=== PATIENT | male | born 1945 | race Two or more races ===

== ENCOUNTER 2019-03-12 19:00 | Inpatient (IN) | payer MEDICARE, MEDICAID ==
[~2019-03-12] VITALS: Ht 180.3 cm; Wt 99.3 kg
[2019-03-12 19:00] VITALS: BP 165/90
[~2019-03-12 19:00] MED LIST: Omnipaue 350mg/ml 100ml vial INJ PRN
--- NOTE | 2019-03-12 19:00 | NUR ---
ED Nurse Note: Patient brought in by RA due to S/P fallx 20 mins ago prior arrival to ER. As per patient he felt weak. Pt is noted with bump on forehead and abrassions on his nose and forehead. No KO. Pt alert and oriented, verbally responsive. Afebrile. VSS.
--- NOTE | 2019-03-12 19:04 | Emergency Room Report ---
History of Present Illness General Chief Complaint: Multiple Trauma/Fall Source: Patient Present Illness HPI 73-year-old male presents with fall, patient states that he felt a sudden weakness, like something hit his head but then he was awake the entire time and he just collapsed + LOC, he is not sure if he had chest pain or shortness of breath, no nausea no vomiting currently denies headache, he endorses that his forehead currently hurts from the fall, no aggravating relieving factors severity is mild, mild head pain patient presents for evaluation No history of brain bleeds in the family Allergies: Coded Allergies: No Known Allergies (Unverified , 03/12/19) Patient History Past Medical History: see triage record Reviewed Nursing Documentation: PMH: Agreed; PSxH: Agreed Nursing Documentation-PMH Past Medical History: No History, Except For Hx Hypertension: Yes Review of Systems All Other Systems: negative except mentioned in HPI Physical Exam Vital Signs Date Time Temp Pulse Resp B/P (MAP) Pulse Ox O2 Delivery O2 Flow Rate FiO2 03/12/19 18:53 98.2 88 16 165/90 (115) 92 Room Air Sp02 EP Interpretation: reviewed, normal General Appearance: well appearing, no apparent distress, alert Head: normocephalic, other - Contusion of the forehead, hematoma of forehead Eyes: bilateral eye PERRL, bilateral eye EOMI ENT: uvula midline, moist mucus membranes Neck: supple, thyroid normal, supple/symm/no masses Respiratory: lungs clear, no respiratory distress, no retraction, no accessory muscle use Cardiovascular #1: normal peripheral pulses, regular rate, rhythm, no edema, no gallop, no murmur Gastrointestinal: non tender, soft, no guarding, no rebound Musculoskeletal: normal inspection Neurologic: alert, oriented x3 Psychiatric: mood/affect normal Skin: no rash, warm/dry Medical Decision Making Diagnostic Impression: Primary Impression: Fall Qualified Codes: W19.XXXA - Unspecified fall, initial encounter Additional Impressions: Syncope and collapse Closed head injury Qualified Codes: S09.90XA - Unspecified injury of head, initial encounter ER Course Patient with syncope and collapse, ddx includes, ACS, PE, Stroke. Patient with neg troponin, neg cxr. CTA negative for acute clot of aneurysm, no e/o of ICH. Patient will be admitted to Dr. Ferguson under Telemetry. Laboratory Tests Test 03/12/19 19:40 White Blood Count 9.2 K/UL (4.8-10.8) Red Blood Count 5.46 M/UL (4.70-6.10) Hemoglobin 15.1 G/DL (14.2-18.0) Hematocrit 47.1 % (42.0-52.0) Mean Corpuscular Volume 86 FL (80-99) Mean Corpuscular Hemoglobin 27.6 PG (27.0-31.0) Mean Corpuscular Hemoglobin Concent 32.0 G/DL (32.0-36.0) Red Cell Distribution Width 14.4 % (11.6-14.8) Platelet Count 166 K/UL (150-450) Mean Platelet Volume 6.8 FL (6.5-10.1) Neutrophils (%) (Auto) % (45.0-75.0) Lymphocytes (%) (Auto) % (20.0-45.0) Monocytes (%) (Auto) % (1.0-10.0) Eosinophils (%) (Auto) % (0.0-3.0) Basophils (%) (Auto) % (0.0-2.0) Differential Total Cells Counted 100 Neutrophils % (Manual) 16 % (45-75) L Lymphocytes % (Manual) 80 % (20-45) H Monocytes % (Manual) 2 % (1-10) Eosinophils % (Manual) 2 % (0-3) Basophils % (Manual) 0 % (0-2) Band Neutrophils 0 % (0-8) Platelet Estimate Adequate Platelet Morphology Normal Red Blood Cell Morphology Normal Prothrombin Time 10.7 SEC (9.30-11.50) Prothrombin Time INR 1.0 (0.9-1.1) PTT 23 SEC (23-33) Urine Color Yellow Urine Appearance Clear Urine pH 6 (4.5-8.0) Urine Specific [place] 1.020 (1.005-1.035) Urine Protein 2+ (NEGATIVE) H Urine Glucose (UA) Negative (NEGATIVE) Urine Ketones Negative (NEGATIVE) Urine Blood 2+ (NEGATIVE) H Urine Nitrite Negative (NEGATIVE) Urine Bilirubin Negative (NEGATIVE) Urine Urobilinogen Normal MG/DL (0.0-1.0) Urine Leukocyte Esterase Negative (NEGATIVE) Urine RBC 10-15 /HPF (0 - 0) H Urine WBC 0-2 /HPF (0 - 0) Urine Squamous Epithelial Cells None /LPF (NONE/OCC) Urine Bacteria Few /HPF (NONE) Sodium Level 139 MMOL/L (136-145) Potassium Level 4.3 MMOL/L (3.5-5.1) Chloride Level 105 MMOL/L (98-107) Carbon Dioxide Level 29 MMOL/L (21-32) Anion Gap 5 mmol/L (5-15) Blood Urea Nitrogen 15 mg/dL (7-18) Creatinine 1.0 MG/DL (0.55-1.30) Estimate Glomerular Filtration Rate mL/min (>60) Glucose Level 98 MG/DL (74-106) Calcium Level 8.9 MG/DL (8.5-10.1) Total Bilirubin 0.6 MG/DL (0.2-1.0) Aspartate Amino Transferase (AST) 24 U/L (15-37) Alanine Aminotransferase (ALT) 25 U/L (12-78) Alkaline Phosphatase 85 U/L (46-116) Troponin I 0.000 ng/mL (0.000-0.056) Pro-B-Type Natriuretic Peptide 47 pg/mL (0-125) Total Protein 7.4 G/DL (6.4-8.2) Albumin 4.2 G/DL (3.4-5.0) Globulin 3.2 g/dL Albumin/Globulin Ratio 1.3 (1.0-2.7) Lipase 189 U/L (73-393) EKG Diagnostic Results EKG Time: 19:03 EP Interpretation: NSR, rate 77, QTc 430, no acute ST elevations, normal axis Rhythm Strip Diag. Results Rhythm Strip Time: 19:30 EP Interpretation: yes Rate: 80 Rhythm: NSR, no PVC's, no ectopy Chest X-Ray Diagnostic Results Chest X-Ray Diagnostic Results : Chest X-Ray Ordered: Yes # of Views/Limited/Complete: 1 View Indication: Other - syncope EP Interpretation: Yes Interpretation: no consolidation, no effusion, no pneumothorax, no acute cardiopulmonary disease Impression: No acute disease Electronically Signed by: Micheal Merlos MD CT/MRI/US Diagnostic Results CT/MRI/US Diagnostic Results : Impression Preliminary Findings Only See Final Report For Complete Findings CTA HEAD: No large vessel occlusion. No aneurysm. Atherosclerotic calcification of the bilateral cavernous and supraclinoid internal carotid arteries with greater than 50% stenosis on the left. CTA NECK: No evidence of hemodynamically significant carotid artery stenosis. Atherosclerotic calcification of the bilateral proximal internal carotid arteries with up to approximately 40% stenosis on the left and 30% on the right. CT head shows focal cortical volume loss of the left frontal cerebral cortex Chronic small vessel ischemic disease. Multilevel moderate degenerative changes throughout the cervical spine. Radiologist: Quang David MD Study ready at 22:01 and initial results transmitted at 22:17 *This report constitutes a preliminary interpretation only. Non-acute findings felt to be unrelated to the clinical presentation may not be discussed in this report. The study will be interpreted and a final report will be generated by the local Radiologist the following shift. To reach the hospital radiology department call [phone]. Last Vital Signs Date Time Temp Pulse Resp B/P (MAP) Pulse Ox O2 Delivery O2 Flow Rate FiO2 03/12/19 18:53 98.2 88 16 165/90 115 92 Room Air Disposition: ADMITTED INPATIENT Condition: Stable Micheal Merlos MD Mar 12, 2019 19:04
--- NOTE | 2019-03-12 19:08 | NUR ---
ED Nurse Note: Xray at bedside.
--- NOTE | 2019-03-12 19:15 | NUR ---
ED Nurse Note: Pt taken to CT.
[2019-03-12] MEDS ORDERED: Tetanus/Diptheria/Pertussis IM ONE (19:30)
--- NOTE | 2019-03-12 19:42 | NUR ---
ED Nurse Note: Pt came back from CT.
[2019-03-12 19:49] LABS: HEMATOCRIT 47.1 % (42.0-52.0); HEMOGLOBIN 15.1 G/DL (14.2-18.0); MEAN CORPUSCULAR VOLUME 86 FL (80-99); PLATELET COUNT 166 K/UL (150-450); RED BLOOD COUNT 5.46 M/UL (4.70-6.10); RED CELL DISTRIBUTION WIDTH 14.4 % (11.6-14.8); WHITE BLOOD COUNT 9.2 K/UL (4.8-10.8)
[2019-03-12 19:50] LABS: APPEARANCE,URINE CLEAR; BILIRUBIN, URINE NEGATIVE (NEGATIVE); GLUCOSE, URINE (UA) NEGATIVE (NEGATIVE); KETONES,URINE NEGATIVE (NEGATIVE); LEUKOCYTE ESTERASE ,URINE NEGATIVE (NEGATIVE); NITRITE,URINE NEGATIVE (NEGATIVE); PH,URINE 6 (4.5-8.0); PROTEIN,URINE 2+ (NEGATIVE); UROBILINOGEN,URINE NORMAL MG/DL (0.0-1.0)
[2019-03-12 19:53] LABS: COLOR,URINE YELLOW
[2019-03-12 20:08] LABS: ANION GAP 5 mmol/L (5-15); BLOOD UREA NITROGEN 15 mg/dL (7-18); CALCIUM 8.9 MG/DL (8.5-10.1); CARBON DIOXIDE 29 MMOL/L (21-32); CHLORIDE 105 MMOL/L (98-107); POTASSIUM 4.3 MMOL/L (3.5-5.1); SODIUM 139 MMOL/L (136-145)
[2019-03-12 20:17] LABS: ALANINE AMINOTRANSFERASE 25 U/L (12-78); ALBUMIN 4.2 G/DL (3.4-5.0); ALBUMIN/GLOBULIN RATIO 1.3 (1.0-2.7); ALKALINE PHOSPHATASE 85 U/L (46-116); ASPARTATE AMINO TRANSFERASE 24 U/L (15-37); BILIRUBIN,TOTAL 0.6 MG/DL (0.2-1.0)
[2019-03-12 22:10] VITALS: BP 150/88
--- NOTE | 2019-03-12 22:17 | Diagnostic Imaging Report ---
Indication: Focal weakness. Acute cva Technique: Continuous helical transaxial imaging of the head was obtained during rapid intravenous contrast administration. Arterial phase of enhancement obtained. Coronal 2-D reformats were also obtained and maximum intensity projection images in multiple planes. Study obtained in a Siemens sensation [address] Automatic Exposure Control was utilized. Total Dose length Product (DLP): 3114.[address] Dose Index Volume (CTDIvol): 104 mGy Comparison: None Findings: The study is technically limited. Evaluation is primarily on the basis of the source images only. The 2-D reconstructions, MIPS are technically uninterpretable. There is no evidence of a major occlusion of the proximal portions of the intracranial arteries including the anterior middle and posterior cerebral arteries. The basilar and intracranial portions of both vertebral arteries appear unremarkable. The intracranial portions of the internal carotid arteries show no occlusion or high-grade stenosis. Mild calcification of the cavernous and supraclinoid ICA noted. IMPRESSION: Diagnostically limited evaluation due to the poor quality of the reconstructions as described above. No high-grade stenosis or occlusion identified.
[2019-03-12] MEDS ORDERED: METOPROLOL SUCC50 MG ORAL (23:17)
[2019-03-12] MEDS ORDERED: ALLOPURINOL300 M1 ORAL (23:17)
[2019-03-12] MEDS ORDERED: DOXAZOSIN MESYLA1 MG ORAL (23:17)
[2019-03-12] MEDS ORDERED: AMLODIPINE BESYL5 MG ORAL (23:17)
--- NOTE | 2019-03-12 23:44 | NUR ---
ED Nurse Note: Report given to Leslie BATES from Tele.
--- NOTE | 2019-03-12 23:49 | NUR ---
NURSE NOTES: Received report from MONTEZ Frazier RN.
[2019-03-13] VITALS (7 sets, daily range): BP systolic 126–144; BP diastolic 68–84
--- NOTE | 2019-03-13 00:05 | NUR ---
TRANSFER TO FLOOR: Patient transferred to Tele. Report given to Lelsie BATES. Pt alert and oriented, verbally responsive. Able to walk with steady gait. IV line on right AC 20g patent and intact. No SOB. Breathing even and unlabored. Belongings given to the patient.
--- NOTE | 2019-03-13 00:15 | NUR ---
NURSE NOTES: Patient transferred to tele floor via gurney with 2 staff member assist, no incidents. Patient is AOx4, no signs of shortness of breath, distress, or pain noted. Patient is ambulatory with steady gait and able to make needs known. Belongings list went through with ER nurse at bedside, patient keeping belongings at bedside. Patient has $24 in [place] ($5 x4, $1 x4), refused to keep in safe. Patient placed on tele box, tolerated well. Patient's IV site checked, intact and patent, no signs of redness, infiltration, or bleeding noted. Medications reconciled with patient. Bed in lowest position, brakes on, side rails up x2 and call light within reach. Will continue with plan of care.
--- NOTE | 2019-03-13 00:35 | NUR ---
NURSE NOTES: Called and received admission orders from Dr. Ferguson. Noted and carried out, will continue to monitor patient.
[2019-03-13] MEDS: Doxazosin 1mg Tab ORAL SCH ×2 (01:16→21:17)
--- NOTE | 2019-03-13 06:46 | NUR ---
NURSE NOTES: Paged Dr. Ferguson regarding PRN pain meds for patient, received orders. Noted and carried out.
--- NOTE | 2019-03-13 07:10 | NUR ---
HAND-OFF: Report given to PAULO Loving. Plan of care endorsed. Patient in stable condition.
--- NOTE | 2019-03-13 07:29 | NUR ---
NURSE NOTES: Received report from Jess/RN, Patient is on room air no distress/SOB noted at this time. AAO x 4, Able to make needs known. Denies pain at this time. Abrasion noted on face. IV site on Right AC, patent, no bleeding or infiltration noted. Bed in low position and locked, Bed alarm engaged, side rails up x2. Call light within reach, Encouraged to use call light when needed. Will continue plan of care.
[2019-03-13] MEDS ORDERED: LUBRICANT EYE1 EAC1 OP (08:13)
[2019-03-13] MEDS: Metoprolol Succinate XL 50mg tab ORAL SCH (08:21)
--- NOTE | 2019-03-13 10:14 | Diagnostic Imaging Report ---
Indication: Orbital and maxillofacial trauma and pain Technique: Continuous helical transaxial imaging of the orbits/maxillofacial structures obtained without intravenous contrast administration. Coronal 2-D reformats were also obtained. Study obtained in a Siemens sensation [address] Automatic Exposure Control was utilized. Total Dose length Product (DLP): 582.[address] Dose Index Volume (CTDIvol): 25.1 mGy Comparison: None Findings: There is no evidence of an acute fracture. Paranasal sinuses and mastoids are clear. There is soft tissue swelling over the frontal region. Moderate degenerative changes of cervical spine incidentally noted with hypertrophied facets and uncovertebral joints foraminal stenosis. IMPRESSION: No acute fracture identified. Moderate cervical spondylosis. Frontal scalp contusion The CT scanner at [facility] is accredited by the [employer] and the scans are performed using dose optimization techniques as appropriate to a performed exam including Automatic Exposure control.
--- NOTE | 2019-03-13 10:15 | NUR ---
*-* NO INSURANCE INFORMATION IN THE BAR UNABLE TO SEND CLINICALS OR REVIEWS *-*
--- NOTE | 2019-03-13 10:27 | Diagnostic Imaging Report ---
Indication: Syncope. Technique: Contiguous 5 mm thick transaxial imaging of the head obtained in a Siemens Sensation [address] scanner. Soft tissue and bone windows generated. Automatic Exposure Control was utilized. Total Dose length Product (DLP): 1426.[address] Dose Index Volume (CTDIvol): 62.7 mGy Comparison: none Findings: There is mild prominence of the ventricles, basal cisterns, and cerebral sulci consistent with atrophy. Mild, nonspecific, white matter hypoattenuation is noted throughout the brain consistent with chronic small vessel disease. There is no midline shift, edema, acute hemorrhage, mass effect, or abnormal extra-axial fluid collections. There is a 1.4 x 2.1 cm arachnoid cyst over the left frontal convexity associated with some scalloping of the inner table. Bones are unremarkable. Impression: No acute intracranial bleed, mass effect or edema. Mild atrophy of the brain. Nonspecific white matter hypoattenuation probably due to chronic small vessel disease. Left frontal arachnoid cyst The CT scanner at [facility] is accredited by the [employer] and the scans are performed using dose optimization techniques as appropriate to a performed exam including Automatic Exposure control.
--- NOTE | 2019-03-13 12:49 | Diagnostic Imaging Report ---
Indication: CVA and focal weakness. Technique: Continuous helical transaxial imaging of the neck was obtained from the aortic arch to the skull base during rapid intravenous contrast administration. Arterial phase of enhancement obtained. Coronal 2-D reformats were also obtained and maximum intensity projection images in multiple planes. Study obtained in a Siemens sensation [address] Automatic Exposure Control was utilized. Total Dose length Product (DLP): 3114.[address] Dose Index Volume (CTDIvol): 104 mGy Comparison: None Findings: There is no high-grade stenosis or occlusion of the extracranial portions of both internal carotid arteries. There is some calcific plaque at the origins of the ICA and carotid bifurcations. This does not appear significant hemodynamically. The common carotid arteries are widely patent from the arch. Both vertebral arteries are demonstrated and show no significant stenosis. There is moderate degenerative disease of the cervical spine. There is narrowing of intervertebral discs and accompanying endplate osteophyte formation. Hypertrophied facet joints also demonstrated. Multilevel neural foraminal stenosis demonstrated. IMPRESSION: No high-grade stenosis or occlusion of the extracranial carotid or vertebral arteries. Mild atherosclerotic vascular disease. Cervical spondylosis. The CT scanner at [facility] is accredited by the [employer] and the scans are performed using dose optimization techniques as appropriate to a performed exam including Automatic Exposure control.
--- NOTE | 2019-03-13 12:55 | Diagnostic Imaging Report ---
Indication: Dyspnea Comparison: None A single view chest radiograph was obtained. Findings: Left hemidiaphragm is markedly elevated. There is suggestion of cardiomegaly. Lungs are clear. Bones are unremarkable. IMPRESSION: Elevated left hemidiaphragm
--- NOTE | 2019-03-13 15:25 | NUR ---
[employer] 73 YO MALE BIBA FROM HOME TO ER CC S/P FALL SYNCOPE SI: SYNCOPE T. 98.2 HR 88 RR 16 B/P 168/91 HEAD/NECK CT= MILD ATHEROSCLEROTIC VASCULAR DISEASE HEAD CT= NO ACUTE PROCESS CXR= ELEVATED LEFT HEMIDIAPHRAGM CT FACILA BONES= NO FRACTURES IS: IV BOLUS NS X 1 LITER TDAP IM ADMITTED TO TELE @0005 TELE STATUS DCP RETURN HOME
[2019-03-13] MEDS ORDERED: Gadavist 7.5mMol/7.5ml vial IV PRN (17:00)
--- NOTE | 2019-03-13 19:33 | NUR ---
HAND-OFF: Report given to Bj/RN, Patient is sitting on chair, in stable condition. Endorsed plan of care.
--- NOTE | 2019-03-13 19:35 | NUR ---
Received report from nurse Fabienne RN. Awake and ambulating in the room. Denies c/o discomfort at this time. Abrasion noted to his face but dry. Continue with the p[an of care.
--- NOTE | 2019-03-13 22:30 | History and Physical Report ---
DATE OF ADMISSION: 03/12/2019 CHIEF COMPLAINT: Fall with loss of consciousness. HISTORY OF PRESENT ILLNESS: The patient is a 73-year-old man, who was walking on a sidewalk when he felt suddenly weak in his right leg and arms. He collapsed and likely lost consciousness as his memory of the event is very poor. He had no seizure activity reported to him and remembers people around him when he was next aware. He was too weak to get up and paramedics brought him to the emergency department. He was noted to have a contusion of the forehead, but no signs of stroke or cerebral hemorrhage were identified. CT scan does show a cyst as noted below in addition to atherosclerotic disease. The patient reports that he has numbness of his hands for several months, but no numbness in the legs. He does not have any focal weakness any longer at this time. PAST MEDICAL HISTORY: Hypertension and tonsillectomy as a child. He is not aware of any cholesterol disorder. He has a history of an elevated white count, but does not have a diagnosis of cancer or leukemia. MEDICATIONS: Allopurinol, amlodipine, doxazosin, and metoprolol eyedrops. REVIEW OF SYSTEMS: Unremarkable. PHYSICAL EXAMINATION: GENERAL: The patient is overweight. VITAL SIGNS: Normal with blood pressure slightly elevated. HEENT: His head shows ecchymosis over the forehead and glabella. The eyes show no scleral icterus. NECK: No jugular venous distention. The carotids are 2+. CHEST: Clear. CARDIAC: Rhythm is regular. ABDOMEN: Soft and nontender. Liver and spleen are not enlarged. EXTREMITIES: No clubbing, cyanosis, or edema. He is able move all extremities with full power. Cranial nerves are intact. LABORATORY DATA: Laboratory studies show a normal white count with a right shift of 80% lymphocytes. Chemistry is unremarkable. Coagulation is normal. Urinalysis shows few red cells. Imaging studies show atherosclerotic sclerosis of the aorta. The left hemidiaphragm is elevated. There is plaque in the intracranial vessels. There is a 2.1 centimeter arachnoid cyst over the left frontal convexity with some scalloping of the inner table. There is no intracerebral hemorrhage or mass and no edema. IMPRESSION: 1. Loss of consciousness with head trauma. 2. Arachnoid cyst, left frontal lobe. 3. Hypertension. 4. Lymphocytosis. 5. Atherosclerotic disease of aorta. 6. . PLAN: The patient will have an MRI of the brain with contrast and Neurology consultation will be requested. We will start anti-lipid medication if his lipid panel so indicates. Mika Ferguson M.D. DR: RO JOB#: [id number] CC: Mika Ferguson M.D.; Fax#: [phone]
[2019-03-14] VITALS: BP 150/89
--- NOTE | 2019-03-14 00:15 | Consultation ---
DATE OF CONSULTATION: 03/13/2019 NEUROLOGICAL CONSULTATION CONSULTING PHYSICIAN: Jero Escamilla M.D. CHIEF COMPLAINT: This is the first [facility] admission for this 73-year-old right-handed man with a previous history of hypertension for 10 years and gout for 3 years on metoprolol, allopurinol, amlodipine 10 mg, and doxazosin 2 mg. The patient was admitted with a chief complaint of a fall on he states it is on Sunday, but it was apparently yesterday. The patient felt well. He was walking and took 1 step with his right foot and his right leg collapsed. He fell striking his face and nose. He was not knocked out, but was . He had no dizzy spells. No hearing loss. No blackout spells. No neck or back pain. He denied any chest pain, palpitations, but he might have had some shortness of breath. The patient initially could not get up for about 3 minutes or so, but got into the ambulance and was brought to this hospital. He denies any nausea or vomiting. He denies any alcohol yesterday. He denies chest pain, palpitation, shortness of breath. He has no memory loss. Ten days before the accident, he had tinglings and paresthesias in his hands, which comes and goes. He denies any loss of bowel or bladder function, tremors or shakes, gait disorder, diplopia, however, he did have some blurred vision after the head injury. There is no history of thyroid disease. He does not smoke. He denies any headaches before the accident, but does have a headache after the accident. The patient previously had an injury to his right heel "could not walk for a few days" because of pain. This apparently cleared out. He had no problems with his gait afterwards. The patient was brought to this hospital and seen in the emergency room. His urinalysis is essentially negative except for some rbc's and some elevated urine protein and few bacteria. His specific gravity is was 1.020 with a pH of 6. His chemistries were all normal with a negative troponin. His PT and PTT were normal. His CBC revealed normal hemoglobin, normal platelets, and a normal white count; however, his lymphocyte count is 80% and neutrophil count was 15%. The patient had a chest x-ray, which revealed an elevated left hemidiaphragm. Otherwise was unremarkable. However, there was a suggestion of cardiomegaly. He did have CT scan of his head, which revealed over the left frontal convexity. There is some scalloping of the inner table of the skull. Otherwise was negative except for some nonspecific white matter hypoattenuation consistent with small vessel disease. The patient had a CT angiogram of the head, which was a poor study. However, there is no high-grade stenosis or occlusion identified. A CT angiogram of the neck yesterday revealed some calcific plaques at the origins of the ICA and carotid bifurcation. The vertebral arteries are normal. The diagnosis is mild arteriosclerotic vascular disease. No high-grade stenosis or occlusion of the extracranial carotid or vertebral arteries. Facial bone CT was done, which revealed no fractures, moderate cervical spondylosis, and a frontal scalp contusion. The patient denied any history of thyroid disease, cancer, sickle cell disease or trait, anemia, liver disease. He does have gout. See above. His mother probably had Alzheimer disease. PAST MEDICAL HISTORY/PAST MEDICAL ILLNESSES: 1. Hypertension. See above. 2. Gout. See above. ALLERGIES: None. HISTORY: None. SOCIAL HISTORY: He is single. Has no children. Works in human relations. MEDICATIONS: See above. FAMILY HISTORY: His father probably of lung cancer. His mother is probably from old age. He had a sister who of lung cancer and a brother who probably of emphysema. He also had diabetes. REVIEW OF SYSTEMS: His appetite is good. PHYSICAL EXAMINATION: GENERAL: He is a well-developed obese man, in no acute distress. VITAL SIGNS: His weight is stable at 235 pounds. He is 5 feet 10 inches tall. Blood pressure is 136/75, temperature is 97.3 degrees, pulse rate is 61 and regular. HEENT: Examination of the head, ears, eyes, nose, mouth, and throat reveals extensive abrasions over the frontal area and over his nose. NECK: There is no tenderness to palpation or limitation of motion. Carotids are +2. No bruits noted. LUNGS: Clear to auscultation. CARDIOVASCULAR: PMI could not be felt. JVP were not distended. The patient had a normal S1. S2 appeared to be physiologically split. I could not hear any murmurs or rubs or clicks. ABDOMEN: Obese. Bowel sounds intact. No tenderness, masses, or organomegaly. EXTREMITIES: Intact. Tinel signs were negative at the wrists. I could not feel the peripheral pulses in the lower extremities. NEUROLOGIC EXAMINATION: MENTAL STATUS: He was alert and awake. Judgment, his judgment was normal. Affect, the affect is appropriate. He was in a rather good mood. Memory, past memory is intact to his mother's maiden name. Immediate recall was 3/3 objects. Recent recall was 3/3 words at 5 minutes. Intellect, similarities were abstract i.e., watch and ruler "forms of measurement." Orientation, time - he knew it was 03/13/2019, he knew it is . Place, he knew he is at [facility], did not know the floor number. He was oriented to person. Language function, spoken speech was fluent without paraphasias. Comprehension and repetition were intact. There was no right left confusion or finger agnosia. CRANIAL NERVE EXAMINATION: CRANIAL NERVE II: Visual mcallister are intact to confrontation. Fundi were not visualized. CRANIAL NERVES III, IV, AND : Extraocular motility was full. Pupils are 5 mm, round, and light reactive. CRANIAL NERVE V: Facial and corneal sensation were intact to fine touch. CRANIAL NERVE VII: Facial strength was 5/5. CRANIAL NERVE VIII: Auditory acuity was basically intact A.U. CRANIAL NERVES IX AND X: Gag was intact. CRANIAL NERVE XI: Sternocleidomastoid strength was 5/5. CRANIAL NERVE XII: Tongue protrudes in the midline without fasciculations or atrophy. MUSCLE EXAMINATION: Muscle bulk and tone are normal. Strength is 5/5 proximally and distally without pronator drift. Reflexes are trace in the upper extremities, +2 at the knees, +1 at the ankles with downgoing toes on testing for Babinski response. COORDINATION: Kzlzwd-ja-rvyf, rapid alternating movements, qmwa-qf-rsia testing are normal. GAIT AND STATION: He had a normal based gait. Heel-toe tandem walk normal. Romberg is negative. SENSORY EXAMINATION: Sensation is intact to pinprick, proprioception, vibration, and fine touch. IMPRESSION: The patient basically now has a normal examination except for the abrasions on his face. The patient had sudden weakness in the right leg. The localization is unclear. He does have a cyst in the left frontal lobe. It is conceivable that it could have cause a focal decrease in blood flow with weakness in the right leg. The right leg weakness would be in the territory of the anterior cerebral artery on the left side. Usually, these patients have shoulder weakness, which he did not have and other signs. Another possible localization would be in the cervical or thoracic spinal cord, possibly ischemia to those areas. We should get the MRI of the brain. If this does not show much, then MRIs of the cervical and thoracic spine should be done. He does not really need any physical therapy. He is not on aspirin at this time, but I am not sure I would put him on aspirin or Plavix because we are not sure of what are the causes. His carotid arterial sclerosis would have had send an embolus to the left anterior cerebral artery, which would be unusual. Usually, it goes to the middle cerebral artery. PLAN: 1. Obtain MRIs of the cervical and thoracic spinal cord if MRIs of the brain showed no changes. 2. I will speak to you about this case. Thank you for this interesting case, Dr. Ferguson. Jero Escamilla MD DR: NINA JOB#: [id number] CC:
[2019-03-14 04:00] VITALS: BP 149/88
--- NOTE | 2019-03-14 07:29 | NUR ---
HAND-OFF: Report given to PAULO LONDONO. Sitting on the chair and comfortable..
[2019-03-14 08:00] VITALS: BP 153/76
[2019-03-14 08:02] LABS: CHOLESTEROL 224 MG/DL (< 200); HDL CHOLESTEROL 63 MG/DL (40-60); TRIGLYCERIDES 96 MG/DL (30-150)
[2019-03-14] MEDS: Metoprolol Succinate XL 50mg tab ORAL SCH (08:50)
--- NOTE | 2019-03-14 08:57 | NUR ---
NURSE NOTES: Pt taken down to MRI
--- NOTE | 2019-03-14 09:40 | NUR ---
03/14 Before MR exam started, pt felt too clautrophobic to continue, willl try again later with sedation. ramon
[2019-03-14] MEDS ORDERED: LORazepam Inj 2mg/ml 1ml IV SCH ×2 (10:45→18:30)
--- NOTE | 2019-03-14 13:33 | NUR ---
NURSE NOTES: Pt taken down to MRI take 2. Pt given Ativan per eMAR to help with anxiety/panic attack from previous attempt.
--- NOTE | 2019-03-14 13:58 | Cardiology Report ---
APPROVED REPORT EKG Measurement Heart [id number] MI [id number] Normal sinus rhythm Normal ECG
--- NOTE | 2019-03-14 14:43 | NUR ---
MRI BRAIN W/WO COMPLETED.
--- NOTE | 2019-03-14 15:24 | NUR ---
OFFICE COORDINATORTURNER IN SI; SYNCOPE T. 97.3 HR 76 RR 16 B/P 153/76 RA 98% IS: NORVASC PO TOPROL PO ALLOPURINOL PO TELE STATUS
--- NOTE | 2019-03-14 15:31 | General Progress Note ---
Assessment/Plan Assessment/Plan: 1. Loss of consciousness with head trauma. 2. Arachnoid cyst, left frontal lobe. 3. Hypertension. 4. Lymphocytosis. 5. Atherosclerotic disease of aorta. more alert today quicker responses no focal weakness MRI report pdg disc w neuro poss dc tomorrow Subjective Constitutional: Reports: no symptoms Neurologic/Psychiatric: Reports: no symptoms Allergies: Coded Allergies: No Known Allergies (Unverified , 03/12/19) Objective Last 24 Hour Vital Signs Date Time Temp Pulse Resp B/P (MAP) Pulse Ox O2 Delivery O2 Flow Rate FiO2 03/14/19 08:50 76 153/76 03/14/19 08:50 76 153/76 03/14/19 08:07 Room Air 03/14/19 08:00 97.3 76 16 153/76 (101) 97 03/14/19 08:00 62 03/14/19 04:00 56 03/14/19 04:00 97.7 65 18 149/88 (108) 99 03/14/19 00:00 97.6 63 18 150/89 (109) 98 03/14/19 00:00 59 03/13/19 21:00 Room Air 03/13/19 20:00 66 03/13/19 20:00 97.6 75 16 141/81 (101) 98 03/13/19 16:00 97.3 61 20 136/75 (95) 100 03/13/19 16:00 65 Intake and Output 03/13/19 03/14/19 19:00 07:00 Intake Total 800 ml Balance 800 ml Intake Oral 800 ml # Voids 4 3 # Bowel Movements 1 Laboratory Tests 03/14/19 06:17: Triglycerides Level 96, Cholesterol Level 224H, LDL Cholesterol 136H, HDL Cholesterol 63H, Cholesterol/HDL Ratio 3.6 Height (Feet): 5 Height (Inches): 11.00 Weight (Pounds): 219 General Appearance: no apparent distress, alert Cardiovascular: normal rate Neurologic: solutions development analyst II-XII grossly normal, no motor/sensory deficits, alert, oriented x 3, responsive Mika Ferguson MD Mar 14, 2019 15:31
--- NOTE | 2019-03-14 15:42 | Diagnostic Imaging Report ---
Indication: 7 onset of weakness in right leg and arm, head trauma Technique: sagittal T1 fast spin echo, axial T1 and T2 FLAIR PROPELLER, axial T2 FS PROPELLER, T2* GRE, axial diffusion weighted images, post contrast axial and coronal T1 FLAIR PROPELLER images. ADC and exponential ADC maps generated Comparison: Reference made to CT scan dated 03/12/2019 Findings: Focal area of CSF signal with attenuation of the underlying calvarium is demonstrated in the left frontal region, corresponds to suspected arachnoid cyst reported on recent CT scan. This measures approximately 3.8 x 1.5 x 3.2 cm. No abnormal areas of restricted diffusion to suggest acute infarction. No acute hemorrhage or edema. No mass effect nor midline shift. No abnormal contrast enhancement. There is age-related enlargement of the ventricles and extra axial CSF spaces. There is extensive periventricular deep white matter focal and confluent high T2 signal, consistent with chronic microvascular ischemic changes. The vascular flow voids are preserved.. Visualized orbits and sinuses are unremarkable. . Impression: Negative for acute intracranial bleed, mass effect, infarct, or contrast enhancing lesion Left frontal region arachnoid cyst Age-related volume loss Extensive periventricular deep white matter high T2 signal, position with chronic microvascular ischemic change
[2019-03-14] MEDS ORDERED: Gadavist 7.5mMol/7.5ml vial IV PRN ×2 (17:00)
[2019-03-14 20:00] VITALS: BP 131/93
--- NOTE | 2019-03-14 20:38 | Diagnostic Imaging Report ---
EXAM: MR Cervical Spine Without Intravenous Contrast CLINICAL HISTORY: SYNCOPE TECHNIQUE: Magnetic resonance images of the cervical spine without intravenous contrast in multiple planes. COMPARISON: No relevant prior studies available. FINDINGS: Vertebrae: Unremarkable. The marrow signal is unremarkable. The vertebral body heights are maintained. Spinal cord: Unremarkable. Normal signal. Soft tissues: Unremarkable. DISCS/SPINAL CANAL/NEURAL FORAMINA: C2-C3: Bilateral facet and uncovertebral joint arthropathy and posterior disc osteophyte complex. These findings result in moderate right and severe left foraminal narrowing and mild spinal canal stenosis. C3-C4: There is bilateral facet and uncovertebral joint arthropathy and posterior disc osteophyte complex. These findings result in severe bilateral foraminal narrowing and mild spinal canal stenosis. C4-C5: Bilateral facet and uncovertebral joint arthropathy and posterior disc osteophyte complex. These findings result in severe bilateral foraminal narrowing and mild spinal canal stenosis. C5-C6: Bilateral facet and uncovertebral joint arthropathy and posterior disc osteophyte complex. These findings result in severe bilateral foraminal narrowing and moderate spinal canal stenosis. C6-C7: Bilateral facet and uncovertebral joint arthropathy and posterior disc osteophyte complex. These findings result in severe bilateral foraminal narrowing and moderate spinal canal stenosis. C7-T1: Bilateral facet and uncovertebral joint arthropathy and posterior disc osteophyte complex. These findings result in severe bilateral foraminal narrowing and mild spinal canal stenosis. IMPRESSION: Severe degenerative changes resulting in multilevel spinal canal stenosis (up to moderate) as well as multilevel foraminal narrowing as detailed above.
--- NOTE | 2019-03-14 20:48 | Diagnostic Imaging Report ---
EXAM: MR Thoracic Spine Without Intravenous Contrast CLINICAL HISTORY: SYNCOPE TECHNIQUE: Magnetic resonance images of the thoracic spine without intravenous contrast in multiple planes. COMPARISON: No relevant prior studies available. FINDINGS: Vertebrae: Unremarkable. The marrow signal is unremarkable. The vertebral body heights are maintained. Discs/spinal canal/neural foramina: There are mild to moderate degenerative changes throughout the thoracic spine with multilevel disc desiccation, loss of disc height as well as multiple small disc bulges and small disc herniations. These findings do not result in significant spinal canal stenosis. Spinal cord: Unremarkable. Normal signal. Soft tissues: Unremarkable. IMPRESSION: Mild to moderate degenerative changes without significant spinal canal stenosis.
[2019-03-14] MEDS: Doxazosin 1mg Tab ORAL SCH (20:58)
--- NOTE | 2019-03-14 21:01 | Progress Note ---
DATE: 03/14/2019 SUBJECTIVE: The patient states that he is quite sure he did not black out or lose consciousness prior to falling. He remembers falling, might have been dazed after he hit his head. In other words, suffered a cerebral congestion. He is sure that his consciousness is unchanged prior to his fall. He had his MRI scan today. It did not show much change from his CT scan of the brain. PHYSICAL EXAMINATION: VITAL SIGNS: Blood pressure is 153/76, pulse is 76 and regular, temperature is 97.3 degrees. NECK: There is no posterior cervical tenderness or muscle spasm. No limitation of motion. BACK: There is no tenderness to percussion or muscle spasm. NEUROLOGIC: MENTAL STATUS: He is alert and awake. His mental status is unchanged from yesterday. CRANIAL NERVE EXAMINATION: Cranial nerves II through XII are intact. MUSCLE EXAMINATION: Muscle bulk and tone normal. Strength is 5/5 proximally and distally. Reflexes are trace in the upper extremities, +2 at the knees and ankles with downgoing toes and testing for Babinski response. COORDINATION: Ixdlit-xk-vtge, nvjr-oc-efcp testing, rapid alternating movements are normal. GAIT AND STATION: He has a normal based gait. Heel-to-toe walk are normal. Tandem walk is unsteady. Romberg is negative. IMPRESSION: I doubt that the patient has had a syncopal episode prior to his fall assuming the history is correct. The patient will have MRI scans of the cervical spine and the thoracic spine with and without gadolinium just to make sure he does not have any occult cord lesion. If he does, it is not revealing any evidence of problems on his examination. Still complains of numbness in his fingers and both hands fairly symmetrical. Bending his head does not cause numbness in the fingers. He appeared to be a maybe the diagnosis here I doubt that he has a cord lesion or mass lesion. His tandem walk though is unsteady, which could implicate the spinal cerebellar tracks in his spinal cord. PLAN: MRI scan of the cervical and thoracic spine with and without gadolinium. Jero Escamilla MD DR: NINA JOB#: [id number] CC:
[2019-03-15] VITALS: BP 144/78
[2019-03-15 04:00] VITALS: BP 151/90
--- NOTE | 2019-03-15 07:56 | NUR ---
NURSE NOTES: Received report from PAULO Sneed. Patient in chair resting, educated to call staff when move to bed. AOX4, denies dizziness at this time. Patient on room air, IV on right AC 20G, asymptomatic, patent, intact. Endorsed patient was unable to take MRI with contrast d/t anxiety. IV on right AC 20G, asymptomatic, patent, intact. Bed in lowest position, side rails upx2, call light within reach. Will continue to monitor.
[2019-03-15 08:00] VITALS: BP 140/89
[2019-03-15] MEDS: Metoprolol Succinate XL 50mg tab ORAL SCH (08:59)
[2019-03-15 12:00] VITALS: BP 145/78
--- NOTE | 2019-03-15 14:12 | NUR ---
NURSE NOTES: Per Dr. Escamilla, patient ok for shower. Order noted, entered, carried out. Will continue to monitor.
[2019-03-15 16:00] VITALS: BP 154/90
--- NOTE | 2019-03-15 16:45 | NUR ---
NURSE NOTES: Patient stated want to leave hospital right now. Paged Dr. Ferguson, patient requesting to leave hospital right now and per MD note, possible DC tomorrow. Per Dr. Ferguson patient can leave with my order. Order noted, entered, carried out. Patient made aware Dr. Ferguson just ordered discharge to home.
--- NOTE | 2019-03-15 17:00 | NUR ---
NURSE NOTES: Patient discharged per Dr. Ferguson. furniture sander removed and returned to engineering technology instructor. IV removed, ID band removed and placed in shredder. Patient educated for side effects of medication. Informed to seek medical advice for further syncopal episode. Patient discharged with all belongings, per patient will call taxi after drinking or eating something nearby hospital per patient's preference, Patient AOx4, ambulatory with steady gait.
--- NOTE | 2019-03-16 01:30 | Progress Note ---
SUBJECTIVE: The patient is doing very well. No muscle weakness, numbness, or tingling except for his fingers. There is no gait disorder, loss of bowel or bladder function, or headache. His MRI scans did not reveal any cord lesions although the cervical spine MRI shows a lot of degenerative joint disease. PHYSICAL EXAMINATION: VITAL SIGNS: Temperature is 98 degrees, blood pressure is 145/78, pulse is 65 and regular, and respiratory rate 18. NEUROLOGIC: Mental Status: Basically normal. Muscle examination: Muscle bulk and tone are normal. Strength is 5/5 in the upper and lower extremities. Reflexes are +1 in the upper, +2 in the lower extremities, and some downgoing toe on the left and indefinite downgoing toe on the right. COORDINATION: Ttnvvo-ag-nlov and vqad-bd-lrfk testing are intact. Gait and Station: Normal based gait. Romberg negative. Heel and toe walk intact. Tandem walk is somewhat better than yesterday. IMPRESSION: The patient has no evidence of cord lesion in his spine. His exam is basically normal. can go home and I suggest that he see me as an outpatient for possible carpal tunnel syndrome . PLAN: 1. We can discharge the patient if he wants to. 2. See me as an outpatient. Jero Escamilla MD DR: MATTHIEU JOB#: [id number] CC:
--- NOTE | 2019-03-16 09:54 | NUR ---
CASE MANAGEMENT: CM review and clinical information (face sheet/ H&P/ER MD notes/ progress notes) faxed to [facility] @ . V#[id number].
--- NOTE | 2019-03-16 19:09 | Discharge Summary ---
Discharge Summary Discharge Summary _ DATE OF ADMISSION: 03/14/2019 DATE OF DISCHARGE: 03/21/2019 DISCHARGED BY: Dr. Ferguson REASON FOR ADMISSION: 73 years old male with past medical history of hypertension , presented to the hospital after syncopal episode. Patient was walking on a sidewalk , when he felt weak in his right leg and subsequently collapsed . Patient likely lost consciousness as his memory of the event was very poor. No reported seizure activity. People around him called paramedics , who brought him to emergency department for further evaluation. Patient noted to have a forehead contusion , but no signs of stroke or cerebral hemorrhage were identified. Patient reported numbness of his hands for several months , but no numbness in the leg. He denied any focal weakness at this time. CT of the head revealed left frontal arachnoid cyst. No acute intracranial pathology was identified. Mild atrophy of the brain noted. CT of the head and neck revealed cervical spondylosis, but no high-grade stenosis or occlusion of the extracranial carotid or vertebral arteries. Mild atherosclerotic vascular disease. Chest x-ray revealed elevated light hemidiaphragm suggestive of cardiomegaly. No acute cardiopulmonary pathology. CT scan of the facial bones revealed no acute fracture. Moderate cervical spondylosis frontal scalp contusion. CTA of the head was of poor quality, but revealed no high-grade stenosis or occlusion. Physical exam revealed no focal weakness. Laboratory work-up revealed no leukocytosis, stable hemoglobin and hematocrit. Stable electrolytes, renal parameters and LFT. Troponin negative. Urinalysis revealed no evidence of urinary tract infection, +2 protein. Patient subsequently admitted to telemetry floor for further management. CONSULTANTS: neurologist Dr. Escamilla [facility] COURSE: Patient admitted to telemetry floor. Neurology consult was requested. Lipid panel revealed hypercholesterolemia with total cholesterol 224 , LDL 126 and HDL 63. Triglycerides 96. Patient was educated on low-fat low-cholesterol diet. Consider to start statin. Neurologist seen and evaluated patient . MRI of the brain revealed no evidence of acute intracranial bleeding, mass- effect, infarct or contrast-enhancing lesion. Left frontal region arachnoid cyst. Age-related volume loss. Chronic microvascular ischemic change. Thoracic MRI revealed mild to moderate degenerative changes without significant spinal cord stenosis. Cervical spine MRI revealed severe degenerative changes , resulting in multilevel spinal cord stenosis as well as multilevel foraminal narrowing. Blood pressure was managed with amlodipine , metoprolol and Cardura. All imaging was clsoely reviewed by neurologist. No evidence of cord lesion in the spine. Neurological exam was essentially normal. Neurologist cleared patient for discharge home. Outpatient follow-up with neurologist for possible carpal tunnel syndrome. Supportive care provided. Patient clinically stabilized and was ready for discharge home. 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 DISCHARGE MEDICATIONS: See Medication Reconciliation list. DISCHARGE INSTRUCTIONS: Patient was discharged home. Follow-up with the primary care provider in 1 week. I have been assigned to dictate discharge summary for this account. I was not involved in the patient's management. Tammy Gallego NP Mar 16, 2019 19:09
--- NOTE | 2019-03-17 10:47 | Cardiology Report ---
APPROVED REPORT EXAM: Two-dimensional and M-mode echocardiogram with Doppler and color Doppler. INDICATION Syncope M-Mode DIMENSIONS IVSd1.3 (0.7-1.1cm)Left Atrium (MM)3.4 (1.6-4.0cm) LVDd4.1 (3.5-5.6cm)Aortic Root2.7 (2.0-3.7cm) PWd1.1 (0.7-1.1cm)Aortic Cusp Exc.1.6 (1.5-2.0cm) IVSs1.3 cm LVDs1.9 (2.5-4.0cm) PWs1.2 cm Technically difficult study due to poor acoustical windows. Normal left ventricular chamber size, systolic function and wall motion to extent visualized. Left ventricular ejection fraction estimated to be 55-60 %. No evidence of left ventricular hypertrophy. No pericardial effusion. All other cardiac chamber sizes are within normal limits. Focal aortic valve sclerosis with adequate cusp excursion. Thickened mitral valve leaflets with normal excursion. Mitral annulus and aortic root calcification. Normal pulmonic valve structure. Normal tricuspid valve structure. IVC at size 2.1 cm with physiologic collapse. A color flow and spectral Doppler study was performed and revealed: No aortic insufficiency. Trace mitral regurgitation. Mitral diastolic velocities suggest reduced left ventricular relaxation c/w mild LV diastolic dysfunction (Grade I ) Mild tricuspid regurgitation. Tricuspid systolic velocities suggests peak right ventricular systolic pressure of 17mmHg.
== END 2019-03-15 18:03 | disposition home or self-care (01) | DRG 84 ==
LOC: EDBD 19:00 → EMR 19:39 → EDBEDREQ 20:54 → 2E 22:10 → EDBEDREQ 22:29 → OBSVTOIN 03-14 16:57 → 2E 03-14 17:30
DX: S06.9X9A Unspecified intracranial injury with loss of consciousness of unspecified duration, initial encounter (principal); G93.0 Cerebral cysts; I10 Essential (primary) hypertension; G56.00 Carpal tunnel syndrome, unspecified upper limb; M47.892 Other spondylosis, cervical region; S00.83XA Contusion of other part of head, initial encounter; W19.XXXA Unspecified fall, initial encounter; Y92.480 Sidewalk as the place of occurrence of the external cause; I70.90 Unspecified atherosclerosis; M48.02 Spinal stenosis, cervical region; M10.9 Gout, unspecified; E11.9 Type 2 diabetes mellitus without complications; I70.0 Atherosclerosis of aorta; R53.1 Weakness
CPT/HCPCS: 36415; 70450; 70486; 70496; 70498; 70553; 71045; 72141; 72146; 80053; 80061; 81003; 83690; 83880; 84484; 85007; 85025; 85610; 85730; 90471; 90715; 93005; 93306; 93880; 96360; 96374; 96375; 99285; A9585